=== PATIENT | female | born 1970 | race Hispanic/Latino ===

== ENCOUNTER 2016-05-29 23:40 | Emergency (ER) | payer OTHER ==
[~2016-05-29] VITALS: Ht 167.6 cm; Wt 84.8 kg
--- NOTE | 2016-05-30 01:39 | ED UPPER/LOWER EXTREMITY COMPL ---
History of Present Illness General Chief Complaint: Lower Extremity Problems Stated Complaint: KNEE PAIN Source: patient Exam Limitations: no limitations Vital Signs & Intake/Output Vital Signs & Intake/Output Vital Signs Date Time Temp Pulse Resp B/P Pulse O2 O2 Flow FiO2 Ox Delivery Rate 05/30 0229 96.3 60 18 154/93 100 Room Air 05/30 0111 96.1 66 18 161/90 100 Room Air 05/30 0105 Room Air Allergies Coded Allergies: No Known Allergies (05/30/16) Reconcile Medications Diclofenac Potassium 50 MG TABLET 1 TAB PO TID PRN PAIN Tramadol HCl (Ultram) 50 MG TABLET 1 TAB PO Q6P PRN PAIN Triage Note: TRIAGE: PATIENT TO ER FROM HOME REPORTING +LOW BACK AND BILATERAL KNEE PAIN X 2 WEEKS, DENIES ANY INJURIES/ FALLS. PATIENT REPORTS "CAN'T GET UP OUT OF THE WHEELCHAIR BECUASE IT'S TOO PAINFUL." PAIN 10/10 TO ALL SITES. Triage Nurses Notes Reviewed? yes HPI: Patient presents for evaluation of severe constant throbbing bilateral knee pain , right greater than left, that began rather suddenly about 2 weeks ago. Nothing seems to make her feel better including taking ibuprofen over-the- counter and elevating her knees. She is also now starting to experience a right low back pain. She denies any history of arthritis. She denies family history of arthritis. She states however that her knees do become warm and swollen and tend to hurt more towards the evening. Patient states she had a similar episode about a month ago that spontaneously resolved. Past History Travel History Traveled to [place] past 21 day No Medical History Any Pertinent Medical History? see below for history Neurological: NONE EENT: NONE Cardiovascular: hypertension, hyperlipidemia Respiratory: NONE Gastrointestinal: NONE Hepatic: NONE Renal: NONE Musculoskeletal: NONE Psychiatric: NONE Endocrine: diabetes Blood Disorders: NONE Cancer(s): NONE [employer]/Reproductive: NONE Surgical History Surgical History: non-contributory Psychosocial History What is your primary language Greenlandic Tobacco Use: Refused to answer Family History Hx Contributory? No Review of Systems Review of Systems Constitutional: Reports: no symptoms. EENTM: Reports: no symptoms. Respiratory: Reports: no symptoms. Cardiovascular: Reports: no symptoms. Gastrointestinal/Abdominal: Reports: no symptoms. Genitourinary: Reports: no symptoms. Musculoskeletal: Reports: see HPI. Skin: Reports: no symptoms. Neurological/Psychological: Reports: no symptoms. Hematologic/Endocrine: Reports: no symptoms. Immunological: Reports: no symptoms. All Other Systems: Reviewed and Negative Physical Exam Physical Exam General Appearance: SEE BELOW Comments: Gen.: Well-nourished, well-developed, no acute respiratory distress. Head: Normocephalic, atraumatic. Eyes: Normal inspection bilaterally Ears: Normal inspection bilaterally Nose: Normal inspection, nasal cannula in place Throat/mouth : Moist mucosa Neck: Supple, full range of motion, no goiter Heart: Regular rate and rhythm Lungs: Quiet respirations Back: Normal range of motion, mild tenderness over the right sacroiliac region without associated soft tissue swelling, erythema or ecchymoses. Extremities: Lower extremities: Bilateral effusions with warmth (right greater than left). Lower extremities are neurovascularly intact distally. Pain worsens with range of motion. No apparent trauma. Neurologic: Cranial nerves grossly intact, speech is clear Skin: warm and dry Psychiatric: Calm, cooperative, no apparent delusions or hallucinations Progress Differential Diagnosis: dislocation, fracture, gout, septic arthritis, sprain, arthritis Plan of Care: Orders Procedure Date/time Status XRY-KNEE COMPLETE RIGHT 05/30 136 Active Diagnostic Imaging: Viewed by Me: Radiology Read. Discussed w/RAD: Radiology Read. Radiology Impression: PATIENT: TIKA SULTANA PRESENT AGE: 46 PATIENT ACCOUNT NO: [id number] : 70 LOCATION: [facility] ORDERING PHYSICIAN: PHANI WOOD MD SERVICE DATE: 05/30/16 EXAM TYPE: RAD - XRY-KNEE COMPLETE RIGHT EXAMINATION: XR KNEE, RIGHT CLINICAL INFORMATION: Swelling and warmth. Question arthritis. COMPARISON: No relevant prior imaging is available. TECHNIQUE: Four views of the right knee. FINDINGS: There is mild asymmetric narrowing of the medial compartment of the knee. No acute fracture or dislocation. The lateral compartment and patellofemoral compartments are unremarkable. There is a prominent suprapatellar joint effusion. IMPRESSION: Prominent suprapatellar joint effusion and asymmetric narrowing of the medial compartment of the knee. Otherwise unremarkable examination with no evidence of acute fracture. 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 <Electronically signed in Other Vendor System> SIGNED BY: TALISHA KENNYQUE Jake 05/30/16 0246 Comments: Given the prior episode and the bilateral nature of the patient's symptoms, I doubt septic arthritis. Departure Departure Disposition: HOME OR SELF CARE Condition: Stable Clinical Impression Primary Impression: Arthritis of knee, degenerative Qualifiers: Osteoarthritis type: unspecified Laterality: bilateral Qualified Code: M17.0 - Bilateral primary osteoarthritis of knee Referrals: PATIENT HAS NO PRIMARY CARE DR (PCP/Family) Additional Instructions: Voltaren as prescribed for pain. Add tramadol if necessary. Follow-up with your primary care physician or the [facility] practice for reevaluation next week. Return if any concerns or sudden worsening. Please note that there might be incidental findings in your evaluation that are unrelated to the current emergency department visit. Please notify your primary care doctor about this emergency department visit in order to obtain and review all of the testing performed so that these incidental findings can be monitored as needed. If you had an x-ray performed, please understand that some fractures or other diseases may not be seen on the initial set of x-rays. If your symptoms persist you might need a repeat set of x-rays to check for such a fracture. If you had a laceration evaluated, please understand that foreign bodies such as glass or wood may not be visible to the naked eye or on plain x-rays. If the wound becomes red, swollen, increasingly more painful or if there is any drainage from the wound, please have it reevaluated by a physician for the possibility of a retained foreign body. Thank you for choosing the [facility] Emergency Department for your care. It was a pleasure to serve you today. Phani Wood M.D. [facility] Departure Forms: Customer Survey General Discharge Information Prescriptions: Current Visit Scripts Diclofenac Potassium 1 TAB PO TID PRN PAIN #30 TAB Tramadol HCl (Ultram) 1 TAB PO Q6P PRN PAIN #12 TAB
[2016-05-30 02:29] VITALS: BP 154/93
--- NOTE | 2016-05-30 02:46 | RADIOLOGY REPORT ---
EXAMINATION: XR KNEE, RIGHT CLINICAL INFORMATION: Swelling and warmth. Question arthritis. COMPARISON: No relevant prior imaging is available. TECHNIQUE: Four views of the right knee. FINDINGS: There is mild asymmetric narrowing of the medial compartment of the knee. No acute fracture or dislocation. The lateral compartment and patellofemoral compartments are unremarkable. There is a prominent suprapatellar joint effusion. IMPRESSION: Prominent suprapatellar joint effusion and asymmetric narrowing of the medial compartment of the knee. Otherwise unremarkable examination with no evidence of acute fracture.
[2016-05-30] MEDS ORDERED: DICLOFENAC POTA50 M1 PO (02:48)
[2016-05-30] MEDS ORDERED: ULTRAM50 M1 PO (02:48)
== END 2016-05-30 02:55 ==
LOC: ERH 23:40
DX: M17.0 Bilateral primary osteoarthritis of knee (principal)
CPT/HCPCS: 73562-RT; 96372; J1885